=== PATIENT | male | born 1970 | race Two or more races ===

== ENCOUNTER 2022-09-11 22:01 | Emergency (ER) | payer MEDICAID ==
[~2022-09-11] VITALS: Ht 170.2 cm; Wt 74.5 kg
[2022-09-11 22:20] VITALS: BP 163/99
[2022-09-12] MEDS ORDERED: ONDANSETRON HCL 4 MG/2 ML VIAL IM ONE (00:15)
[2022-09-12] MEDS ORDERED: PB/HYOSCY/ATR/SCOP/LIDO/MAALOX 55 ML BOTTLE PO ONE (00:15)
[2022-09-12 00:32] LABS: BASOPHILS % (AUTO) 0.9 % (0.0-2.0); EOSINOPHILS % (AUTO) 0.7 % (1.0-6.0); HEMATOCRIT 45.1 % (41-53); HEMOGLOBIN 15.3 g/dL (13.5-17.5); LYMPHOCYTES # (AUTO) 1.4 K/uL (1.0-4.8); LYMPHOCYTES % (AUTO) 20.8 % (22.0-44.0); MEAN CORPUSCULAR HEMOGLOBIN 31.8 pg (26.0-34.0); MEAN CORPUSCULAR VOLUME 94 fL (80-100); MONOCYTES # (AUTO) 0.5 K/uL (0.1-1.0); NEUTROPHILS # (AUTO) 4.9 K/uL (1.8-7.7); NEUTROPHILS % (AUTO) 70.6 % (40.0-70.0); PLATELET COUNT (AUTO) 270 K/uL (150-450); RED BLOOD CELL COUNT(AUTO) 4.81 MIL/uL (4.50-5.90); RED CELL DISTRIBUTION WIDTH 13.7 % (11.5-14.5)
[2022-09-12 00:56] LABS: ANION GAP 12 mmol/L (8-16); CALCIUM, TOTAL 9.4 mg/dL (8.8-10.5); CARBON DIOXIDE 26 mmol/L (22-29); CHLORIDE 105 mmol/L (98-107); GLOMERULAR FILTR. RATE CALC > 60 mL/min (>60); GLUCOSE,RANDOM 96 mg/dL (70-110); POTASSIUM 3.5 mmol/L (3.5-5.1); SODIUM SERUM 143 mmol/L (136-145)
[2022-09-12 00:59] LABS: ALANINE AMINOTRANSFERASE 27 U/L (12-78); ALBUMIN 4.1 g/dL (3.4-5.0); ALKALINE PHOSPHATASE 111 U/L (46-116); ASPARTATE AMINOTRANSFERASE 23 U/L (15-37); BILIRUBIN,TOTAL 0.5 mg/dL (0.1-1.0); LIPASE 102 U/L (73-393); TOTAL PROTEIN, SERUM 7.9 g/dL (6.4-8.2)
[2022-09-12] MEDS ORDERED: ACET-66 PO (01:58)
[2022-09-12] MEDS ORDERED: OMEP20 PO (01:58)
[2022-09-12] MEDS ORDERED: MAG30ORA11 PO (01:58)
== END 2022-09-12 03:13 | disposition home or self-care (01) ==
LOC: EMS 22:01
DX: T54.91XA Toxic effect of unspecified corrosive substance, accidental (unintentional), initial encounter (principal); K29.70 Gastritis, unspecified, without bleeding; Y92.89 Other specified places as the place of occurrence of the external cause
CPT/HCPCS: 99285; 80053; 83690; 84484; 85025; 36415; 74022; 93005; 96372; J2405

== ENCOUNTER 2025-03-13 08:37 | Emergency (ER) | payer MEDICAID ==
[~2025-03-13] VITALS: Ht 177.8 cm; Wt 62.0 kg
[~2025-03-13 08:37] MED LIST: ACET-66 PO; MAG30ORA11 PO; OMEP-148 PO
[2025-03-13 08:40] VITALS: TEMP 98.1
[2025-03-13] MEDS: ACETAMINOPHEN/CODEINE 300-30 MG TABLET PO ONE (09:06)
[2025-03-13] MEDS: KETOROLAC TROMETHAMINE 60 MG/2 ML VIAL IM ONE (09:07)
[2025-03-13 10:44] VITALS: BP 143/86; PULSE 67; RESP 16; O2SAT 98
[2025-03-13] MEDS ORDERED: IBUP-1554 PO (11:11)
== END 2025-03-13 11:25 | disposition home or self-care (01) ==
LOC: EMS 08:38
DX: S20.229A Contusion of unspecified back wall of thorax, initial encounter (principal); Z59.00 Homelessness unspecified; Z79.899 Other long term (current) drug therapy; W19.XXXA Unspecified fall, initial encounter; Y93.89 Activity, other specified; Y92.89 Other specified places as the place of occurrence of the external cause; Y99.8 Other external cause status
CPT/HCPCS: 99284; 72100; 73503; 96372; J1885